=== PATIENT | female | born 1965 | race Hispanic/Latino ===

== ENCOUNTER → 2018-10-05 | Day surgery (SDC) | payer OTHER ==
[~2018-10-05] MED LIST: BUPIVACAINE HCL 0.5% 10ML MPF VIAL INJ ONE; CEFAZOLIN SOD 1 GM/D5W 50ML 50 ML IV ONE; CHLORDIAZEPOXI1 EACH PO; DUEXIS 800-26.1 EACH PO; FENTANYL CITRATE/PF 100MCG/2 ML INJ ONE; HYDROMORPHONE 2MG/ML 2 MG/ML ML ONE; LIDOCAINE HCL 2% LOCAL INJ 5 ML SDV VIAL INJ ONE; MIDAZOLAM HCL 2 MG/2 ML VIAL ONE; ONDANSETRON HCL INJ 2 MG/ML VIAL ONE; PROPOFOL IV EMULSION 10 MG/ML 20 ML VIAL ONE; SPIRONOLACTONE25 MG PO; VALTREX500 MG PO
[2018-10-05 05:52] LABS: ANION GAP 14.7 mmol/L (8-16); CALCIUM 9.2 mg/dL (8.4-10.2); CREATININE, SERUM 1.01 mg/dL (0.57-1.11); POTASSIUM 3.7 mmol/L (3.5-5.1)
[2018-10-05 08:35] VITALS: BP 125/83
--- NOTE | 2018-10-05 09:23 | Operative Report ---
DATE OF PROCEDURE: October 05, 2018 PREOPERATIVE DIAGNOSIS: Heel spur, left foot. POSTOPERATIVE DIAGNOSIS: Heel spur, left foot. OPERATION PERFORMED: Excision of heel spur, left foot. SURGEON : Susan ROMERO D.P.M MEDICAL LABORATORY TECHNICIAN SURGEON: FREDY CRUZ D.P.M. DETAILS OF PROCEDURE: The patient was placed on the OR table in the supine position. The left lower extremity was prepped and draped in the usual manner. A general anesthetic was administered and hemostasis accomplished using a pneumatic cuff set at 350 mmHg at thigh level. An incision approximately 4 cm in length was made on the medial aspect of the left heel. The incision was deepened, exposing the plantar fascia. The plantar fascia was then removed from the plantar aspect of the calcaneus. This exposed the heel spur, which was then removed with an osteotome and a mallet and was smoothed with a hand rasp. Following the procedure, the wound was flushed with sterile saline solution. A size 7 TLS drain was inserted into the wound. Subcutaneous tissue was closed with 3-0 Vicryl and the skin with 4-0 nylon. Following the procedure, 10 mL of 0.5 Marcaine were injected to minimize postop pain. A sterile compression dressing was then applied. At this time, the pneumatic cuff was released and reflex hyperemia was observed to all digits. The patient tolerated the procedure and anesthesia well and left the OR to recovery in good condition with vital signs stable. Job#: [id number] HANNAH
== END | disposition home or self-care (01) ==
LOC: OR 05:13
PROVIDERS: ATTEND Podiatrist Foot & Ankle Surgery
DX: M77.32 Calcaneal spur, left foot (principal); E78.5 Hyperlipidemia, unspecified; K44.9 Diaphragmatic hernia without obstruction or gangrene; Z88.8 Allergy status to other drugs, medicaments and biological substances; Z01.810 Encounter for preprocedural cardiovascular examination
CPT/HCPCS: 28119; 36415; 80048; 93005; J0690; J1170; J2001; J2250; J2405; J2704